=== PATIENT | female | born 1945 | race Caucasian/White ===

== ENCOUNTER 2016-06-05 09:50 | Outpatient (CLI) | payer OTHER ==
--- NOTE | 2016-06-05 11:26 | DIAGNOSTIC IMAGING REPORT ---
PROCEDURE: DEXA BONE DENSITY STUDY CLINICAL INDICATION: BREAST CA;OSTEOPOROSIS COMPARISON: DEXA 05/16/2015 FINDINGS: LUMBAR SPINE: Bone mineral density 0.785 g/cm2, T score -2.4 osteopenia which represents a 1.3% decrease from the previous study LEFT HIP: Bone mineral density 0.668 g/cm2, T score -2.2 osteopenia which represents a 2.8% decrease from the previous study LEFT FEMORAL NECK: Bone mineral density 0.580 g/cm2, T score -2.4 osteopenia which represents a 1.8% decrease from the previous study FRACTURE RISK CALCULATION ( when applicable): 10-year fracture risk of a major osteoporotic fracture 13% and of a hip fracture 3.6% (T score greater or equal to -1.0 to: NORMAL) (T score from -1.1 to -2.4: OSTEOPENIA) (T score ess than or equal to -2.5: OSTEOPOROSIS) IMPRESSION: 1. osteopenia spine hip and femoral neck with 1.3, 2.8, and 1.8% decreases in bone mineral density from the previous study.
== END 2016-06-05 23:00 | disposition home or self-care (01) ==
LOC: XR SRH 09:50
DX: M85.89 Other specified disorders of bone density and structure, multiple sites (principal); C50.919 Malignant neoplasm of unspecified site of unspecified female breast
CPT/HCPCS: 90074; 90100; 95059

== ENCOUNTER 2016-09-01 07:58 | Outpatient (CLI) | payer OTHER ==
--- NOTE | 2016-09-01 11:16 | DIAGNOSTIC IMAGING REPORT ---
PROCEDURE: MG UNILAT SCREEN-RIGHT W/CAD INDICATION: Screening. Left breast carcinoma and with mastectomy (2009). Family history breast carcinoma (cousin). TECHNIQUE: CC and MLO digital views. COMPARISON: Compared to 08/30/2015, 08/28/2014, and 08/10/2013. FINDINGS: Computer-aided detection applied. Moderately dense with a few dystrophic calcifications. No change. IMPRESSION: 1. Negative right mammogram. RESULT CODE: 1- Negative. A. A negative report should not delay biopsy if a dominant or clinically suspicious mass is present. 10-15% of cancers are not identified by x-ray. B. A negative report may reinforce clinical impression. C. Adenosis and dense breasts may obscure an underlying neoplasm. D. False positive reports average 6-10%. E.. A yearly screening mammogram is recommended. A reminder letter will be scheduled.
== END 2016-09-01 23:00 ==
LOC: MAM SRH 07:58
DX: Z12.31 Encounter for screening mammogram for malignant neoplasm of breast (principal); Z85.3 Personal history of malignant neoplasm of breast; Z90.12 Acquired absence of left breast and nipple